=== PATIENT | female | born 1965 | race African-American/Black ===

== ENCOUNTER 2020-06-01 15:45 | Emergency (ER) | payer MEDICARE, MEDICAID ==
[~2020-06-01] VITALS: Ht 180.3 cm; Wt 99.8 kg
[2020-06-01 15:54] VITALS: BP 104/60
[2020-06-01 16:53] LABS: BASOPHILS % (AUTO) 1.5 % (0.0-2.0); EOSINOPHILS % (AUTO) 5.1 % (0.0-3.0); HEMATOCRIT 38.3 % (37.0-47.0); HEMOGLOBIN 12.5 G/DL (12.0-16.0); LYMPHOCYTES % (AUTO) 34.6 % (20.0-45.0); MEAN CORPUSCULAR VOLUME 83 FL (80-99); MONOCYTES % (AUTO) 7.3 % (1.0-10.0); NEUTROPHILS % (AUTO) 51.6 % (45.0-75.0); PLATELET COUNT 462 K/UL (150-450); RED BLOOD COUNT 4.62 M/UL (4.20-5.40); RED CELL DISTRIBUTION WIDTH 14.6 % (11.6-14.8); WHITE BLOOD COUNT 9.2 K/UL (4.8-10.8)
[2020-06-01 17:04] LABS: ANION GAP 10 mmol/L (5-15); BLOOD UREA NITROGEN 10 mg/dL (7-18); CALCIUM 9.1 MG/DL (8.5-10.1); CARBON DIOXIDE 23 MMOL/L (21-32); CHLORIDE 107 MMOL/L (98-107); CREATININE 0.9 MG/DL (0.55-1.30); SODIUM 140 MMOL/L (136-145)
[2020-06-01 17:08] LABS: ALANINE AMINOTRANSFERASE 31 U/L (12-78); ALBUMIN 3.1 G/DL (3.4-5.0); ALBUMIN/GLOBULIN RATIO 0.6 (1.0-2.7); ALKALINE PHOSPHATASE 121 U/L (46-116); ASPARTATE AMINO TRANSFERASE 30 U/L (15-37); BILIRUBIN,TOTAL 0.3 MG/DL (0.2-1.0)
[2020-06-01] MEDS ORDERED: Omnipaque-300 100ml vial INJ PRN (17:15)
--- NOTE | 2020-06-01 17:35 | Diagnostic Imaging Report ---
EXAM: XR Abdomen, 2 Views CLINICAL HISTORY: ABD PAIN TECHNIQUE: Frontal view of the abdomen/pelvis with upright view of the abdomen. COMPARISON: No previous study. FINDINGS: Lower thorax: Cardiomegaly. Intraperitoneal space: No free air. Gastrointestinal tract: Mild to moderate quantity of stool throughout the colon. Nonspecific bowel gas pattern. No dilation. Bones/joints: Osteopenia. Other findings: No abnormal calcifications. IMPRESSION: 1. Nonspecific bowel gas pattern. 2. Mild to moderate quantity of stool. 3. Cardiomegaly per 4. Osteopenia.
[2020-06-01] MEDS ORDERED: Metoclopramide 10mg/2ml Inj IVP ONE (17:45)
--- NOTE | 2020-06-01 17:48 | Consultation ---
History of Present Illness General Date patient seen: Jun 01, 2020 Reason for Hospitalization: Nausea Present Illness HPI This is a very pleasant 55-year-old female with recent history of hysteroscopy by [employer] PERSON who presents with persistent nausea and emesis intermittently since procedure. Patient states that her pain is resolved she is feeling much better but occasionally has intermittent episodes of nausea followed by nonbloody emesis. This been ongoing postoperatively since and she felt concerned and came in for evaluation. Given postoperative issue surgery called to evaluate assist with care. Patient seen, patient evaluate, chart reviewed. I was called to the emergency department which where patient was seen. Patient states that she has been thinking about where her potential etiologies could be. Realize that she was given Keflex and doxycycline post procedure and has been taking those and there may be a correlation when discussing this with the patient to her nausea and vomiting. She has since stopped it and has not felt much worse and seems to be improving. Allergies: Coded Allergies: DOXYCYCLINE (Verified Allergy, Unknown, 06/01/20) METRONIDAZOLE (Verified Allergy, Unknown, 06/01/20) SULFAMETHOXAZOLE (Verified Allergy, Unknown, 06/01/20) TRIMETHOPRIM (Verified Allergy, Unknown, 06/01/20) COVID-19 Screening Contact w/high risk pt: No Experienced COVID-19 symptoms?: No Patient History History Provided By: Patient, Medical Record, PMD Healthcare decision maker Resuscitation status Advanced Directive on File Past Medical/Surgical History Past Medical/Surgical History: (1) Nausea & vomiting Review of Systems Review of Symptoms General ROS: no weight loss or fever Psychological ROS: no depression or mood changes, no memory loss Ophthalmic ROS: no visual changes or eye irritation ENT ROS: no nasal congestion, hearing loss, dizziness Allergy and Immunology ROS: no allergic symptoms or urticaria Hematological and Lymphatic ROS: no swollen glands, unusual bleeding or bruising Endocrine ROS: no polyuria, polydipsia, weight changes, temperature intolerance Respiratory ROS: no cough, shortness of breath, or wheezing Cardiovascular ROS: no chest pain or dyspnea on exertion Gastrointestinal ROS: denies abdominal pain, bright red blood in stool. Musculoskeletal ROS: no myalgias or arthralgias Neurological ROS: no TIA or stroke symptoms Dermatological ROS: no new or changing skin lesions, rashes or pruritis Physical Exam Physical Exam General appearance: alert, cooperative, no distress, appears stated age Head: Normocephalic, without obvious abnormality, atraumatic Eyes: conjunctivae/corneas clear. PERRL, EOM's intact. Fundi benign Throat: Lips, mucosa, and tongue normal. Teeth and gums normal Neck: supple, symmetrical, trachea midline, no adenopathy, thyroid: not enlarged, symmetric, no tenderness/mass/nodules, no carotid bruit and no JVD Lungs: clear to auscultation bilaterally Heart: regular rate and rhythm, S1, S2 normal, no murmur, click, rub or gallop Abdomen: soft, non-tender. Bowel sounds normal. No masses, no organomegaly Extremities: extremities normal, atraumatic, no cyanosis or edema Pulses: 2+ and symmetric Skin: Skin color, texture, turgor normal. No rashes or lesions Neurologic: Grossly normal Last 24 Hour Vital Signs Date Time Temp Pulse Resp B/P (MAP) Pulse Ox O2 Delivery O2 Flow Rate FiO2 06/01/20 16:20 Room Air 06/01/20 15:54 98.1 91 19 104/60 (75) 96 Room Air Laboratory Tests Test 06/01/20 16:44 White Blood Count 9.2 K/UL (4.8-10.8) Red Blood Count 4.62 M/UL (4.20-5.40) Hemoglobin 12.5 G/DL (12.0-16.0) Hematocrit 38.3 % (37.0-47.0) Mean Corpuscular Volume 83 FL (80-99) Mean Corpuscular Hemoglobin 27.1 PG (27.0-31.0) Mean Corpuscular Hemoglobin Concent 32.6 G/DL (32.0-36.0) Red Cell Distribution Width 14.6 % (11.6-14.8) Platelet Count 462 K/UL (150-450) H Mean Platelet Volume 7.7 FL (6.5-10.1) Neutrophils (%) (Auto) 51.6 % (45.0-75.0) Lymphocytes (%) (Auto) 34.6 % (20.0-45.0) Monocytes (%) (Auto) 7.3 % (1.0-10.0) Eosinophils (%) (Auto) 5.1 % (0.0-3.0) H Basophils (%) (Auto) 1.5 % (0.0-2.0) Sodium Level 140 MMOL/L (136-145) Potassium Level 4.0 MMOL/L (3.5-5.1) Chloride Level 107 MMOL/L (98-107) Carbon Dioxide Level 23 MMOL/L (21-32) Anion Gap 10 mmol/L (5-15) Blood Urea Nitrogen 10 mg/dL (7-18) Creatinine 0.9 MG/DL (0.55-1.30) Estimat Glomerular Filtration Rate > 60 mL/min (>60) Glucose Level 115 MG/DL (74-106) H Calcium Level 9.1 MG/DL (8.5-10.1) Total Bilirubin 0.3 MG/DL (0.2-1.0) Aspartate Amino Transf (AST/SGOT) 30 U/L (15-37) Alanine Aminotransferase (ALT/SGPT) 31 U/L (12-78) Alkaline Phosphatase 121 U/L (46-116) H Total Protein 8.2 G/DL (6.4-8.2) Albumin 3.1 G/DL (3.4-5.0) L Globulin 5.1 g/dL Albumin/Globulin Ratio 0.6 (1.0-2.7) L Lipase 134 U/L (73-393) Height (Feet): 5 Height (Inches): 11.00 Weight (Pounds): 220 Medications Current Medications Medications (Trade) Dose Ordered Sig/Layla Route PRN Reason Start Time Stop Time Status Last Admin Dose Admin Iohexol (OMNIPAQUE-300 100ml) 100 ml NOW PRN INJ Radiology Procedure 06/01/20 17:15 06/03/20 17:14 Metoclopramide HCl (Reglan) 10 mg ONCE ONCE IVP 06/01/20 17:45 06/01/20 17:46 06/01/20 17:39 Sodium Chloride 1,000 ml @ 999 mls/hr Q1H1M ONCE IV 06/01/20 17:15 06/01/20 18:15 Assessment/Plan Problem List: (1) Nausea & vomiting Assessment & Plan: 55-year-old female status post hysteroscopy now with nausea and vomiting. Patient was on antibiotics post procedure Keflex and doxycycline and after reviewing in detail with her history symptoms plan of care seems that there may be a correlation to the medication intake and her emesis. She been tolerating diet having bowel movements nonobstructive no abdominal pain pain is resolved. Wounds clean dry intact. Abdominal exam is benign. Patient has been instructed to stop taking the medications. Has been well since. We will continue to monitor. Okay to discharge from surgical standpoint. Follow-up with primary care physician upon discharge. Thank you for letting partici mendoza's care ICD Codes: R11.2 - Nausea with vomiting, unspecified SNOMED: [id number] Yuri Humphrey Jun 01, 2020 17:48
--- NOTE | 2020-06-01 17:48 | Emergency Room Report ---
History of Present Illness General Chief Complaint: Nausea Source: Patient Present Illness HPI Patient is a 55-year-old female who presents for increased Nausea and vomiting. Reports having persistent discomfort with supine position associated with multiple episodes of emesis. Patient had uterine artery embolization as well as a hysteroscopy recently. Patient previously been taking tramadol. Reports having multiple episodes of nonbloody emesis. Denies any current pain. Had been having normal bowel movements. Reports having some slight continued bleeding. Denies any fever. 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 Patient History Past Medical History: see triage record Reviewed Nursing Documentation: PMH: Agreed; PSxH: Agreed Nursing Documentation-PMH Past Medical History: No History, Except For Hx Cardiac Problems: No - UTERINE EMVOLIZATION Review of Systems All Other Systems: negative except mentioned in HPI Physical Exam Vital Signs Date Time Temp Pulse Resp B/P (MAP) Pulse Ox O2 Delivery O2 Flow Rate FiO2 06/01/20 15:54 98.1 91 19 104/60 (75) 96 Room Air Sp02 EP Interpretation: reviewed, normal General Appearance: normal inspection, well appearing, no apparent distress, alert, GCS 15, non-toxic Head: atraumatic ENT: normal ENT inspection, hearing grossly normal, normal voice Neck: normal inspection, full range of motion, supple, no bony tend Respiratory: normal inspection, lungs clear, normal breath sounds, no respiratory distress, no retraction, no wheezing Cardiovascular #1: regular rate, rhythm, no edema Gastrointestinal: normal inspection, normal bowel sounds, non tender, soft, no guarding, no hernia Genitourinary: no CVA tenderness Musculoskeletal: normal inspection, back normal, normal range of motion Neurologic: alert, motor strength/tone normal, 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 Differential diagnosis include was not limited to medication reaction, Labs Test 06/01/20 16:44 White Blood Count 9.2 K/UL (4.8-10.8) Red Blood Count 4.62 M/UL (4.20-5.40) Hemoglobin 12.5 G/DL (12.0-16.0) Hematocrit 38.3 % (37.0-47.0) Mean Corpuscular Volume 83 FL (80-99) Mean Corpuscular Hemoglobin 27.1 PG (27.0-31.0) Mean Corpuscular Hemoglobin Concent 32.6 G/DL (32.0-36.0) Red Cell Distribution Width 14.6 % (11.6-14.8) Platelet Count 462 K/UL (150-450) Mean Platelet Volume 7.7 FL (6.5-10.1) Neutrophils (%) (Auto) 51.6 % (45.0-75.0) Lymphocytes (%) (Auto) 34.6 % (20.0-45.0) Monocytes (%) (Auto) 7.3 % (1.0-10.0) Eosinophils (%) (Auto) 5.1 % (0.0-3.0) Basophils (%) (Auto) 1.5 % (0.0-2.0) Sodium Level 140 MMOL/L (136-145) Potassium Level 4.0 MMOL/L (3.5-5.1) Chloride Level 107 MMOL/L (98-107) Carbon Dioxide Level 23 MMOL/L (21-32) Anion Gap 10 mmol/L (5-15) Blood Urea Nitrogen 10 mg/dL (7-18) Creatinine 0.9 MG/DL (0.55-1.30) Estimat Glomerular Filtration Rate > 60 mL/min (>60) Glucose Level 115 MG/DL (74-106) Calcium Level 9.1 MG/DL (8.5-10.1) Total Bilirubin 0.3 MG/DL (0.2-1.0) Aspartate Amino Transf (AST/SGOT) 30 U/L (15-37) Alanine Aminotransferase (ALT/SGPT) 31 U/L (12-78) Alkaline Phosphatase 121 U/L (46-116) Total Protein 8.2 G/DL (6.4-8.2) Albumin 3.1 G/DL (3.4-5.0) Globulin 5.1 g/dL Albumin/Globulin Ratio 0.6 (1.0-2.7) Lipase 134 U/L (73-393) Last Vital Signs Date Time Temp Pulse Resp B/P (MAP) Pulse Ox O2 Delivery O2 Flow Rate FiO2 06/01/20 16:20 Room Air 06/01/20 15:54 98.1 91 19 104/60 (75) 96 Status: improved Disposition: HOME, SELF-CARE Condition: Stable Scripts Metoclopramide Hcl* (REGLAN*) 10 Mg Tablet 10 MG ORAL THREE TIMES A DAY for nausea, vomitting for 1 Day, #14 TAB Prov: Michael Branch MD 06/01/20 Referrals: NON PHYSICIAN (PCP) Michael Branch MD Jun 01, 2020 17:48
--- NOTE | 2020-06-01 18:03 | Diagnostic Imaging Report ---
EXAM: CT Abdomen and Pelvis With Intravenous Contrast CLINICAL HISTORY: ABD PAIN TECHNIQUE: Axial computed tomography images of the abdomen and pelvis with intravenous contrast. CTDI is 11.1 mGy and DLP is 616.3 mGy-cm. One or more of the following dose reduction techniques were used: automated exposure control, adjustment of the mA and/or kV according to patient size, use of iterative reconstruction technique. COMPARISON: Correlated to KUB of 06/01/2020. FINDINGS: Lung bases: Minimal presumed subsegmental atelectasis at the lung bases. Atypical pneumonia is felt to be unlikely. Heart: Heart is top normal in size. ABDOMEN: Liver: Mild fatty liver. The liver and the spleen enhance uniformly. Gallbladder and bile ducts: Gallbladder is unremarkable. No calcified stones. No ductal dilation. Pancreas: The head, body, tail of the pancreas are unremarkable. No ductal dilation. Spleen: See above. Adrenals: The adrenal glands are unremarkable. Kidneys and ureters: Both kidneys are shown to excrete contrast bilaterally without renal calculus or hydronephrosis. Stomach and bowel: Moderate quantity of stool throughout the colon without bowel obstruction. Although the descending colon is in a contracted state, mild or early inflammatory or infectious colitis of the descending colon cannot be excluded clinical correlation is advised. Mild diverticulosis without diverticulitis per PELVIS: Appendix: Appendix is seen on coronal image 27 and is unremarkable. Bladder: Unremarkable. No mass. Reproductive: Flow is noted within distended endometrial canal which contains fluid. Presumed uterine fibroids are noted. Etiology such as endometritis should be considered. Uterine fibroid. ABDOMEN and PELVIS: Intraperitoneal space: Unremarkable. No free air. No significant fluid collection. Bones/joints: No spondylolysis. No acute fracture. No dislocation. Soft tissues: Ischiorectal fat is clean. Vasculature: Portal vein is patent. Flow is demonstrated within the celiac, SMA, the renal arteries, and DARRYL. No abdominal aortic aneurysm. Lymph nodes: No retroperitoneal lymphadenopathy. IMPRESSION: 1. Although the descending colon is in a contracted state, mild or early inflammatory or infectious colitis of the descending colon cannot be entirely excluded and clinical correlation is advised to 2. The appendix is unremarkable. 3. The gallbladder is unremarkable. 4. No bowel obstruction. 5. Dilated endometrial canal containing fluid and gas within it raising concern for possible endometritis. 6. Fibroid uterus. 7. Transvaginal imaging of the pelvis is advised to follow-up for further evaluation of the knee joint cavity. Clinical correlation is necessary.
[2020-06-01] MEDS ORDERED: REGLAN10 MG ORAL (18:32)
== END 2020-06-01 18:50 | disposition home or self-care (01) ==
LOC: EMR 16:22
DX: K76.0 Fatty (change of) liver, not elsewhere classified (principal); R11.2 Nausea with vomiting, unspecified; Z88.1 Allergy status to other antibiotic agents; Z88.2 Allergy status to sulfonamides; Z88.8 Allergy status to other drugs, medicaments and biological substances
CPT/HCPCS: 74018; 74177; 80053; 83690; 85025; 96361; 96374; 99284; J2765; Q9965